=== PATIENT | male | born 1990 | race Two or more races ===

== ENCOUNTER 2020-09-04 09:06 | Emergency (ER) | payer MEDICAID ==
[~2020-09-04] VITALS: Ht 167.6 cm; Wt 65.8 kg
[2020-09-04] MEDS ORDERED: LORazepam 1mg tab ORAL ONE ×2 (09:15→18:30)
--- NOTE | 2020-09-04 09:15 | Emergency Room Report ---
History of Present Illness General Chief Complaint: Behavioral Complaint Source: EMS Present Illness HPI 30-year-old male here with suicidal ideation and meth use. Patient is homeless and called paramedics because he has been having suicidal thoughts. Patient admits to using meth last night and this morning. Says he has a plan for suicide "by blowing myself up with a bomb or something." No history of suicide attempts. Patient requesting to be placed in a psychiatric facility long-term. Denies IV drug use. Denies alcohol use. Says he has homicidal ideation but is vague with details. 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 Nursing Documentation-[facility] Past Medical History: No History, Except For Hx Hypertension: Yes History Of Psychiatric Problem: Yes Review of Systems All Other Systems: negative except mentioned in HPI Physical Exam Vital Signs Date Time Temp Pulse Resp B/P (MAP) Pulse Ox O2 Delivery O2 Flow Rate FiO2 09/04/20 08:59 98.8 132 18 180/114 (136) 97 Room Air Sp02 EP Interpretation: reviewed, normal General Appearance: no apparent distress, alert, non-toxic, other - Disheveled, foul-smelling Head: normocephalic, atraumatic Eyes: bilateral eye normal inspection, bilateral eye PERRL ENT: hearing grossly normal, normal pharynx, no angioedema, normal voice Neck: full range of motion, supple/symm/no masses Respiratory: chest non-tender, lungs clear, normal breath sounds, speaking full sentences Cardiovascular #1: regular rate, rhythm, no edema Cardiovascular #2: 2+ carotid (R), 2+ carotid (L), 2+ radial (R), 2+ radial (L), 2+ dorsalis pedis (R), 2+ dorsalis pedis (L) Gastrointestinal: normal bowel sounds, non tender, soft, non-distended, no guarding, no rebound Rectal: deferred Genitourinary: normal inspection, no CVA tenderness Musculoskeletal: back normal, normal range of motion, gait/station normal, non- tender Neurologic: alert, motor strength/tone normal, oriented x3, sensory intact, responsive, speech normal Psychiatric: judgement/insight normal, memory normal, other - Appears anxious, tangential reasoning Lymphatic: no adenopathy Medical Decision Making Diagnostic Impression: Primary Impression: Behavioral disorder Additional Impressions: Toe fracture Amphetamine abuse ER Course X-ray left foot: Linear nondisplaced fracture of left third proximal phalanx Laboratory Tests Test 09/04/20 09:33 White Blood Count 14.1 K/UL (4.8-10.8) H Red Blood Count 5.48 M/UL (4.70-6.10) Hemoglobin 15.7 G/DL (14.2-18.0) Hematocrit 47.7 % (42.0-52.0) Mean Corpuscular Volume 87 FL (80-99) Mean Corpuscular Hemoglobin 28.6 PG (27.0-31.0) Mean Corpuscular Hemoglobin Concent 32.9 G/DL (32.0-36.0) Red Cell Distribution Width 13.1 % (11.6-14.8) Platelet Count 307 K/UL (150-450) Mean Platelet Volume 6.5 FL (6.5-10.1) Neutrophils (%) (Auto) 84.8 % (45.0-75.0) H Lymphocytes (%) (Auto) 7.7 % (20.0-45.0) L Monocytes (%) (Auto) 6.9 % (1.0-10.0) Eosinophils (%) (Auto) 0.1 % (0.0-3.0) Basophils (%) (Auto) 0.6 % (0.0-2.0) Sodium Level 141 MMOL/L (136-145) Potassium Level 3.5 MMOL/L (3.5-5.1) Chloride Level 102 MMOL/L (98-107) Carbon Dioxide Level 25 MMOL/L (21-32) Anion Gap 14 mmol/L (5-15) Blood Urea Nitrogen 18 mg/dL (7-18) Creatinine 1.1 MG/DL (0.55-1.30) Estimated Glomerular Filtration Rate > 60 mL/min (>60) Glucose Level 109 MG/DL (74-106) H Calcium Level 9.5 MG/DL (8.5-10.1) Total Bilirubin 0.5 MG/DL (0.2-1.0) Aspartate Amino Transferase (AST) 39 U/L (15-37) H Alanine Aminotransferase (ALT) 67 U/L (12-78) Alkaline Phosphatase 77 U/L (46-116) Total Protein 8.6 G/DL (6.4-8.2) H Albumin 4.8 G/DL (3.4-5.0) Globulin 3.8 g/dL Albumin/Globulin Ratio 1.3 (1.0-2.7) Salicylates Level 1.7 ug/mL (2.8-20) L Urine Opiates Screen Negative (NEGATIVE) Acetaminophen Level < 2 MCG/ML (10-30) L Urine Barbiturates Screen Negative (NEGATIVE) Phencyclidine (PCP) Screen Negative (NEGATIVE) Urine Amphetamines Screen Positive (NEGATIVE) H Urine Benzodiazepines Screen Negative (NEGATIVE) Urine Cocaine Screen Negative (NEGATIVE) Urine Marijuana (THC) Screen Negative (NEGATIVE) Serum Alcohol < 3 mg/dL 30-year-old male here with suicidal ideation. Patient was found to be methamphetamine positive as well as having a left toe fracture. He was placed in an orthopedic shoe and the toe was rosalinda taped. Patient was neurovascular intact before and after the rosalinda tape and shoe were placed. They were placed by the [facility] and inspected by myself. Patient has been medically cleared. Currently awaiting placement for psych eval. Last Vital Signs Date Time Temp Pulse Resp B/P (MAP) Pulse Ox O2 Delivery O2 Flow Rate FiO2 09/04/20 08:59 98.8 132 18 180/114 (136) 97 Room Air Dexter Sullivan M.D. Sep 04, 2020 09:15
[2020-09-04 09:59] LABS: BASOPHILS % (AUTO) 0.6 % (0.0-2.0); EOSINOPHILS % (AUTO) 0.1 % (0.0-3.0); HEMATOCRIT 47.7 % (42.0-52.0); HEMOGLOBIN 15.7 G/DL (14.2-18.0); LYMPHOCYTES % (AUTO) 7.7 % (20.0-45.0); MEAN CORPUSCULAR VOLUME 87 FL (80-99); MONOCYTES % (AUTO) 6.9 % (1.0-10.0); NEUTROPHILS % (AUTO) 84.8 % (45.0-75.0); PLATELET COUNT 307 K/UL (150-450); RED BLOOD COUNT 5.48 M/UL (4.70-6.10); RED CELL DISTRIBUTION WIDTH 13.1 % (11.6-14.8); WHITE BLOOD COUNT 14.1 K/UL (4.8-10.8)
--- NOTE | 2020-09-04 10:00 | NUR ---
ED Nurse Note: pt states he is here after doing meth last night. pt states he knows he needs to stop doing drugs to be clean. pt states "he just wants to feel good, wants food, wants to sleep, wants to stay at a hospital for a month like [facility] because they train doctors". pt states he "wants to blow myself up with a bomb but I wont actually do it" pt presents with flight of ideas, rambling, able to answer questions and verbalize understanding of plan of care. pt oriented to name, birthday, year, does not know where he is. pt able to follow commands. placed in provate room. urine and bloodwork sent. while rn in room, pt looks to side & states " you will ".
[2020-09-04 10:06] LABS: ANION GAP 14 mmol/L (5-15); BLOOD UREA NITROGEN 18 mg/dL (7-18); CALCIUM 9.5 MG/DL (8.5-10.1); CARBON DIOXIDE 25 MMOL/L (21-32); CHLORIDE 102 MMOL/L (98-107); CREATININE 1.1 MG/DL (0.55-1.30); POTASSIUM 3.5 MMOL/L (3.5-5.1); SODIUM 141 MMOL/L (136-145)
[2020-09-04 10:15] LABS: ALANINE AMINOTRANSFERASE 67 U/L (12-78); ALBUMIN 4.8 G/DL (3.4-5.0); ALBUMIN/GLOBULIN RATIO 1.3 (1.0-2.7); ALKALINE PHOSPHATASE 77 U/L (46-116); ASPARTATE AMINO TRANSFERASE 39 U/L (15-37); BILIRUBIN,TOTAL 0.5 MG/DL (0.2-1.0)
[2020-09-04] MEDS ORDERED: Acetaminophen 500mg (ES) tab ORAL ONE (11:00)
[2020-09-04 11:45] VITALS: BP 156/99
--- NOTE | 2020-09-04 11:48 | NUR ---
vitals up dated. pt medicated for pain. pt resting in bed pt asking "how do I go about getting a circumcision at my age". "how do i know if I have brain damage?". pt rambling, flight of ideas. calm & cooperative. pt resting in bed. will continue to monitor.
--- NOTE | 2020-09-04 12:05 | NUR ---
pt has left 3rd toe fracture per xray. pt toe taped and support shoe applied per md order. cap refill <3 sec, mild bruising on L 3rd toe
--- NOTE | 2020-09-04 12:54 | Diagnostic Imaging Report ---
EXAM: X-RAY XRAY Foot Complete L CLINICAL HISTORY: Trauma with foot pain. COMPARISON: None FINDINGS: Total of 3 views of the left foot were obtained. Alignment is anatomic. There is a nondisplaced fracture of the third proximal phalanx. Joint spaces are unremarkable. Surrounding soft tissue is normal. IMPRESSION: NONDISPLACED FRACTURE THIRD PROXIMAL PHALANX.
--- NOTE | 2020-09-04 15:13 | NUR ---
1300: pt in hallway, drinking water, pt talking to self. pt redirectable. will continue to monitor. 1400: pt walking in room, speaking sentence, rambling and restless. will continue to monitor. 1500: pt resting in bed. pt calm. will continue to monitor.
--- NOTE | 2020-09-04 15:15 | NUR ---
primary rn reassigned and taking over triage. handoff report given to nurse charge rn heber regarding pt condition & plan of care. pt cooperative.
--- NOTE | 2020-09-04 15:25 | NUR ---
CLINICALS FAXED TO [facility] WAITING FOR CALL BACK
[2020-09-04 15:40] VITALS: BP 150/93
--- NOTE | 2020-09-04 16:04 | NUR ---
Called [facility] they are still review the chart will call back as soon as possible
--- NOTE | 2020-09-04 16:27 | NUR ---
call recived from [facility] unable to accrpt the patient due to no covidpcr done unable to accept thepatient with covid antigen
--- NOTE | 2020-09-04 16:50 | NUR ---
clinicals faxed to [facility] for eval
[2020-09-04 17:58] LABS: APPEARANCE,URINE CLEAR; BILIRUBIN, URINE NEGATIVE (NEGATIVE); COLOR,URINE PALE YELLOW; GLUCOSE, URINE (UA) NEGATIVE (NEGATIVE); KETONES,URINE NEGATIVE (NEGATIVE); LEUKOCYTE ESTERASE ,URINE NEGATIVE (NEGATIVE); NITRITE,URINE NEGATIVE (NEGATIVE); PH,URINE 6.5 (4.5-8.0); PROTEIN,URINE 1+ (NEGATIVE); UROBILINOGEN,URINE NORMAL MG/DL (0.0-1.0)
--- NOTE | 2020-09-04 19:00 | NUR ---
HAND-OFF: Report given to Night RN roma.
[2020-09-04 19:22] VITALS: BP 120/76
--- NOTE | 2020-09-04 19:25 | NUR ---
ED Nurse Note: Received patient, patient currently in bed with no distress, states that he is anxious, will give meds as ordered. will continue to monitor patient for pending transfer to [facility] facility
--- NOTE | 2020-09-04 20:59 | NUR ---
Julienne called from [facility]-need PCR for covid 19. Explained that we have only antigen. States will not accept patient without PCR.
--- NOTE | 2020-09-04 22:30 | NUR ---
ED Nurse Note: patient ambulated to bathroom
--- NOTE | 2020-09-05 01:30 | NUR ---
ED Nurse Note: Patient in bed resting, complains of no distress
[2020-09-05 04:26] VITALS: BP 114/73
--- NOTE | 2020-09-05 04:34 | NUR ---
ED Nurse Note: patient informed of transfer. patient still in bed complains of no distress
[2020-09-05 05:18] VITALS: BP 113/66
--- NOTE | 2020-09-05 05:29 | NUR ---
TRANSFER: Patient transferred out of ED to [facility], patient is accompanied by [facility] personnel. patient has taken all belongings with them. patient complains of no pain.
== END 2020-09-05 05:30 ==
LOC: EDBD 09:06 → EMR 10:10
DX: F91.9 Conduct disorder, unspecified (principal); F15.10 Other stimulant abuse, uncomplicated; S92.515A Nondisplaced fracture of proximal phalanx of left lesser toe(s), initial encounter for closed fracture; I10 Essential (primary) hypertension; X58.XXXA Exposure to other specified factors, initial encounter; Y93.9 Activity, unspecified; Y92.9 Unspecified place or not applicable; Z59.0 Homelessness
CPT/HCPCS: 36415; 73630; 80053; 80307; 81003; 85025; G0480; G0481; Z7502; 99284